=== PATIENT | female | born 1990 | race American Indian/Alaskan Native ===

== ENCOUNTER 2018-11-04 17:53 | Emergency (ER) | payer MEDICAID, OTHER ==
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
[2018-11-04 21:48] LABS: HCG Qualitative,Urine Negative (Negative)
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
[2018-11-04 23:39] VITALS: BP 119/68
== END 2018-11-04 23:40 | disposition home or self-care (01) ==
LOC: ED 17:53
DX: S50.12XA Contusion of left forearm, initial encounter (principal); Z79.899 Other long term (current) drug therapy; V89.2XXA Person injured in unspecified motor-vehicle accident, traffic, initial encounter; Y93.89 Activity, other specified; Y92.89 Other specified places as the place of occurrence of the external cause; Y99.8 Other external cause status
CPT/HCPCS: 81025